=== PATIENT | female | born 1955 | race Caucasian/White ===

== ENCOUNTER 2019-02-20 05:13 | Emergency (ER) | payer SELFPAY ==
[~2019-02-20] VITALS: Ht 162.6 cm; Wt 54.2 kg
[2019-02-20 05:16] VITALS: BP 110/79
--- NOTE | 2019-02-20 05:46 | NUR ---
PT RESTING IN BED W/O DISTRESS, AWAITING XRAYS.
--- NOTE | 2019-02-20 06:39 | NUR ---
PT GIVEN WARM BLANKET FOR COMFORT, AWAITING IMAGING RESULT. NO ADDITIONAL QUEISTONS OR CONCERNS. VSS.
--- NOTE | 2019-02-20 06:50 | NUR ---
GAVE REPORT TO ROSANNE VALENCIA AND RELINQUISHED CARE.
--- NOTE | 2019-02-20 06:54 | NUR ---
Received report from ROSANNE Hernandez. All questions answered. Assuming care of pt at this time. Pt resting on gurney. NADN. No needs expressed. Call light within reach. Pt has unlabored respirations with even chest rise and fall.
--- NOTE | 2019-02-20 07:24 | NUR ---
Provided pt warm blanket per request. Pt appreciative. No other needs expressed at this time. Call light within reach.
--- NOTE | 2019-02-20 07:57 | NUR ---
Patient given discharge instructions and they have confirmed that they understand the instructions. Patient ambulatory with steady gait. Pt left with prescription, d/c paperwork, and all personal belongings. Pt encouraged to return to ED if symptoms worsen or change.
== END 2019-02-20 07:59 | disposition home or self-care (01) ==
LOC: ED 07:53
DX: S80.02XA Contusion of left knee, initial encounter (principal); S80.01XA Contusion of right knee, initial encounter; J44.9 Chronic obstructive pulmonary disease, unspecified; F17.210 Nicotine dependence, cigarettes, uncomplicated; W19.XXXA Unspecified fall, initial encounter; Y93.89 Activity, other specified; Y92.009 Unspecified place in unspecified non-institutional (private) residence as the place of occurrence of the external cause; Y99.8 Other external cause status
CPT/HCPCS: 99283